=== PATIENT | female | born 1945 | race Caucasian/White ===

== ENCOUNTER 2016-06-14 16:58 | Emergency (ER) | payer OTHER ==
--- NOTE | 2016-06-14 18:59 | DIAGNOSTIC IMAGING REPORT ---
PROCEDURE: CT SINUS/FACIAL BONES W/O CONT CLINICAL INDICATION: Fall injury, initial encounter TECHNIQUE: Noncontrast axial images with coronal reformations. COMPARISON: None. FINDINGS: Right frontal scalp contusion. There is no underlying fracture. The mandible, pterygoid plates, zygomatic arches and nasal bone are intact. Paranasal sinuses are clear. Mild left nasal septal deviation. IMPRESSION: 1. Right frontal scalp contusion. No fracture . All CT scans at this facility use dose modulation, iterative reconstruction, and/or weight-based dosing when appropriate to reduce radiation dose to as low as reasonably achievable.
--- NOTE | 2016-06-14 19:03 | DIAGNOSTIC IMAGING REPORT ---
PROCEDURE: CT HEAD WITHOUT CONTRAST INDICATION: Fall injury, initial encounter TECHNIQUE: Noncontrast axial images with sagittal and coronal reformations. COMPARISON: Head CT 07/22/2014 FINDINGS: Mild cortical atrophy, chronic ischemic changes and enlargement of the ventricular system. No acute intracranial abnormality. Right frontal and periorbital soft tissue swelling. The globes are unremarkable. Paranasal sinuses are clear. Mastoids are clear. IMPRESSION: 1. Right frontal and right periorbital soft tissue contusion 2. Mild atrophy and white matter chronic ischemic changes 3. Findings discussed with Dr. Everett at 07:02 p.m.[facility] Standard Time
--- NOTE | 2016-06-14 19:03 | DIAGNOSTIC IMAGING REPORT ---
PROCEDURE: CT HEAD WITHOUT CONTRAST INDICATION: Fall injury, initial encounter TECHNIQUE: Noncontrast axial images with sagittal and coronal reformations. COMPARISON: Head CT 07/22/2014 FINDINGS: Mild cortical atrophy, chronic ischemic changes and enlargement of the ventricular system. No acute intracranial abnormality. Right frontal and periorbital soft tissue swelling. The globes are unremarkable. Paranasal sinuses are clear. Mastoids are clear. IMPRESSION: 1. Right frontal and right periorbital soft tissue contusion 2. Mild atrophy and white matter chronic ischemic changes 3. Findings discussed with Dr. Everett at 07:02 p.m.[facility] Standard Time
--- NOTE | 2016-06-14 19:09 | DIAGNOSTIC IMAGING REPORT ---
PROCEDURE: CT CERVICAL SPINE W/O CONTRAST CLINICAL INDICATION: Fall injury, initial encounter TECHNIQUE: Noncontrast axial images with sagittal and coronal reformations. COMPARISON: None FINDINGS: 2 mm C4-5 anterolisthesis. There is no fracture. Moderately severe degenerative changes. Severe right C3-4, C4-5 and C5 sign foraminal stenosis. Mild C3-4 for spinal stenosis. Paraspinal soft tissues are unremarkable. IMPRESSION: 1. No acute change 2. Moderately severe degenerative changes with foraminal and spinal stenosis 3. Results discussed with Dr. Everett All CT scans at this facility use dose modulation, iterative reconstruction, and/or weight-based dosing when appropriate to reduce radiation dose to as low as reasonably achievable.
--- NOTE | 2016-06-14 19:09 | DIAGNOSTIC IMAGING REPORT ---
PROCEDURE: XR CHEST 1 VIEW INDICATION: SYNCOPE TECHNIQUE: Portable AP view 06:56 p.m. COMPARISON: Chest 10/17/2014 FINDINGS: Lungs are clear. Heart and mediastinum are normal. Thorax is normal. IMPRESSION: 1. Negative chest.
--- NOTE | 2016-06-14 19:12 | DIAGNOSTIC IMAGING REPORT ---
PROCEDURE: XR HAND 3 OR 4 VIEWS - LEFT INDICATION: TRAUMA/INJURY TECHNIQUE: Four views. COMPARISON: None. FINDINGS: Fracture left fifth metacarpal with overriding of the fragments. 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 IMPRESSION: 1. Fracture of the fifth metacarpal on the left with overriding of the fragments.
--- NOTE | 2016-06-14 21:24 | ED ORDER SUMMARY ---
..... Patient: GURU MEEK OrderSheet [facility] VisitID: [id number] [address] [place] [address] 70y, F Registration Date/Time: 06/14/2016 ORDER SHEET Weight: 81.6 kg (stated) Allergies: Actos, Avantia, Lobster GENERAL ORDERS: Radiotelegraphist (Continuous) (18:14 06/14/2016 Andrei ROSALES) (Ack 18:27 LNations ER Tech1) (19:37 JQuivey R.N.) Chest 1V Urgent (18:15 06/14/2016 Andrei ROSALES) (Ack 18:27 LNations ER Tech1) (19:06 MCampbell) CT Head wo Cont Urgent (18:15 06/14/2016 Andrei ROSALES) (Ack 18:28 LNations ER Tech1) (19:06 MCampbell) Hand 3 or 4V Left Urgent (18:16 06/14/2016 Andrei ROSALES) (Ack 18:28 LNations ER Tech1) (19:06 MCampbell) Cardiac Panel Stat (18:16 06/14/2016 Andrei ROSALES) (Ack 18:28 LNations ER Tech1) (19:44 NHouse ER Tech1) UA-Culture if indicated Urgent (18:16 06/14/2016 Andrei ROSALES) (Ack 18:28 LNations ER Tech1) (20:14 JQuivey R.N.) PT with INR Urgent (18:16 06/14/2016 Andrei ROSALES) (Ack 18:28 LNations ER Tech1) (19:44 NHouse ER Tech1) PTT Urgent (18:16 06/14/2016 Andrei ROSALES) (Ack 18:28 LNations ER Tech1) (19:44 NHouse ER Tech1) BNP Urgent (18:16 06/14/2016 Andrei ROSALES) (Ack 18:28 LNations ER Tech1) (19:44 NHouse ER Tech1) Urine Drug Screen Urgent (18:16 06/14/2016 Andrei ROSALES) (Ack 18:28 LNations ER Tech1) (20:13 JQuivey R.N.) TSH Urgent (18:16 06/14/2016 Andrei ROSALES) (Ack 18:28 LNations ER Tech1) (19:44 NHouse ER Tech1) Pulse oximeter (18:16 06/14/2016 Andrei ROSALES) (Ack 18:27 LNations ER Tech1) (19:37 JQuivey R.N.) EKG - ER Stat (18:16 06/14/2016 Andrei ROSALES) (18:27 LNations ER Tech1) CT Cervical Spine wo Cont Urgent (18:16 06/14/2016 Andrei ROSALES) (Ack 18:29 LNations ER Tech1) (19:06 MCampbell) CT Sinus/Facial Bones wo Cont Urgent (18:24 06/14/2016 Andrei ROSALES) (Ack 18:29 LNations ER Tech1) (19:06 MCampbell) Splint (UE) (Left) (Ulnar Gutter) (19:28 06/14/2016 Andrei ROSALES) (Ack 19:45 JQuivey R.N.) (20:16 LMuller) MEDICATION ORDERS: IV FLUIDS: Demerol IV 12.5 mg (NOW) (18:16 06/14/2016 Andrei ROSALES) (Ack 18:18 SReitz R.N.) (Cancelled: Patient [id number] JQuivey R.N.) IV Saline Lock (18:16 06/14/2016 Andrei ROSALES) (Ack 18:18 Alpesh R.N.) (Cancelled: Patient [id number] JQuivey R.N.) ORDER SHEET NOTES: [Electronically signed by Susie Cantu R.N. (21:32 06/14/2016)] [Electronically signed by Bebo Everett MD (22:26 06/15/2016)] [Electronically locked/signed by Susie Cantu R.N. (21:32 06/14/2016)]
--- NOTE | 2016-06-14 21:24 | ED NURSING NOTES ---
Clinical Report - Nurses [facility] [address] [place] [address] 06/14/2016 17:01 Patient: GURU MEEK TRIAGE Triage time 17:16. Acuity: LEVEL 3. Chief Complaint: FALL while walking (got up out of bed, states she took about 2 steps and legs just gave out and she fell onto the carpeted floor striking her face and both hands). Alert. No acute distress. GILBERT COMA SCORE: Jenkins Coma Scale: 15- eyes open spontaneously (4); best verbal response- oriented x 4 (5); best motor response- obeys commands (6). --17:35 Christelle Kelsey R.N. 17:16 06/14/16. BP: 121/55. HR: 110. RR: 18. O2 saturation: 95%. Temp: 98.3 F (oral). Pain level now: 12/13. --17:35 Christelle Kelsey R.N. Weight: 81.6 kg stated. Height/Length: 66 inches Per Patient. BMI: 29. --17:23 Christelle Kelsey R.N. Medications ALPRAZolam Oral 0.25 mg, as needed. ASA Oral 81 mg, M,W,F,Sat. Citalopram Hydrobromide Oral (Tablet 20 mg) 1/2 tablet, bid. --17:39 Christelle Kelsey R.N. Diltiazem HCl Oral (Tablet 120 mg), daily. --17:39 Christelle Kelsey R.N. Furosemide Oral (Tablet 80 mg), 2x a day. --17:41 Christelle Kelsey R.N. HumaLOG Subcutaneous, as needed (sliding scale). --17:42 Christelle Kelsey R.N. Hydrocodone-Acetaminophen Oral, at bedtime. --17:43 Christelle Kelsey R.N. Levothyroxine Sodium Oral 100 mcg, daily. Magnesium Oral 400 mg, daily. OxyCONTIN Oral 40 mg, 2x a day. Promethazine HCl Oral 25 mg, as needed. Simvastatin Oral 20 mg, daily. Vitamin D Oral (Capsule 2000 unit), bid. --17:44 Christelle Kelsey R.N. Fish Oil Oral 1200 mg, bid. --17:46 Christelle Kelsey R.N. Lantus Subcutaneous 70 units, every AM. --17:46 Christelle Kelsey R.N. Renvela Oral (Tablet 800 mg), per meal. --17:47 Christelle Kelsey R.N. Stool Softener Oral. --17:48 Christelle Kelsey R.N. Vit b complex 2 tabs, daily. --17:48 Christelle Kelsey R.N. Vitamins/Minerals Oral. --17:49 Christelle Kelsye R.N. Allergies Actos. Avantia. Lobster. --17:49 Christelle Kelsey R.N. History Arrived by private vehicle. Historian: patient and family. Accompanied by family. Primary physician (Dimple). This occurred today (at about 0245). SOCIAL HX: Smoker- current status unknown (no). No alcohol use or drug use. FALL RISK ASSESSMENT: Fall risk assessment completed. Risk factors identified include patient age greater than 65 years, history of fall and impairment of mobility and cognition. Fall interventions initiated. Patient placed in wheelchair. FUNCTIONAL ASSESSMENT: Functional assessment performed: requires assistance with the activities of daily living; uses wheelchair and walker- this mobility impairment is an ongoing problem; [id number]. LEARNING NEEDS ASSESSMENT: (teaching with spouse). --17:35 Christelle Kelsey R.N. PROBLEMS: Fistula. Tremor. Hemodialysis. Renal Failure. Hypercholesterolemia. Immunizations. LNMP - Last Normal Menstrual Period. Chronic Back Pain. Chronic edema . Hypertension. Diabetes Mellitus. Anxiety Reaction. --17:23 Christelle Kelsey R.N. ADDITIONAL SURGERIES: Bowel resection . Breast Biopsy. Colonoscopy. Right knee surgery . Right leg fracture repair . Tonsillectomy. --17:23 Christelle Kelsey R.N. Assessment GENERAL / NEURO / PSYCH: The patient is awake and alert, is oriented and cooperative and appears uncomfortable. She has good eye contact. ( swelling, bruising to right eye, both hands). RESPIRATORY: Respirations not labored. SKIN: Skin is warm and dry. --17:35 Christelle Kelsey R.N. Interventions ID band on patient. To treatment room. --17:35 Christelle Kelsey R.N. NURSING PROGRESS NOTES ( first contact with pt. Pt appears comfortable at this time.). --17:55 Ness Mosquera R.N. 17:51 06/14/16. BP: 126/41. HR: 76. RR: 16. O2 saturation: 100%. --17:55 Ness Mosquera R.N. Point of care testing: performed by nurse. Glucose: 54. Result shown to the ED physician. --18:06 Ness Mosquera R.N. ( x2 orange juices given to pt. provider aware of B.). --18:09 Ness Mosquera R.N. ( Pt. requesting x2 acetaminophen. Provider notified:no new orders at this time.). --18:09 Ness Mosquera R.N. 18:25. --18:31 Ness Mosquera R.N. Patient transported to CT by stretcher with tech. (18:51). --18:52 Ness Mosquera R.N. ( correction to prior: pt transported to CT at 1825). --18:53 Ness Mosquera R.N. Patient returned from CT by stretcher with tech. (18:50). --18:54 Ness Mosquera R.N. Patient transported to radiology by stretcher with tech. (18:51). --18:54 Ness Mosquera R.N. ( Attempt to access IV line. Pt. refuse IV and requesting PO medications for pain. Educated the need for lab work and IV access. Pt. requesting to talk with .). --19:16 Ness Mosquera R.N. EKG time: (1909). EKG was ordered, performed by a tech and shown to the ED physician. --19:18 Lili Mcnamara, MYRON Tech1 19:39 lock technician with patient for blood draw. --19:40 Caden Reyes R.N. 19:52 Bedside commode placed in room, assisting pt collect urine specimin. --19:53 Caden Reyes R.N. 20:06. Patient ID band checked for patient name and birthdate: patient confirmed. Clean catch urine collected with return of yellow-colored clear urine; sample sent to lab for urinalysis. Specimen labeled in the presence of the patient. --20:13 Caden Reyes R.N. Ulna gutter upper extremity splint applied to left wrist and hand by tech. Distal pulses intact, sensation intact and motor within normal limits. --20:17 Minna Beaulieu ( Pt was given a sandwich and jello and a cup of water). --20:17 Minna Beaulieu ( blood glucose: 81 after food/ done per nursing protocol). --21:01 Minna Beaulieu. DISPOSITION / DISCHARGE Discharge instructions provided and reviewed with the patient and spouse. Reviewed medication(s) side effects, precautions, dosing and course information. Prescription(s) given to the patient. Patient and spouse verbalized understanding. The patient was discharged by the physician. She was discharged home and accompanied by spouse. She left the Emergency Department in a wheelchair and via private vehicle. Spouse driving. --21:32 Susie Cantu R.N. 21:31 06/14/16. BP: deferred. HR: deferred. RR: deferred. O2 saturation: deferred. Temp: deferred. Pain level now deferred. --21:32 Susie Cantu R.N. Locked/Released at 06/14/2016 21:32 by Susie Cantu R.N.
--- NOTE | 2016-06-14 21:24 | ED ORDER SUMMARY ---
..... Patient: GURU MEEK OrderSheet [facility] VisitID: [id number] [address] [place] [address] 70y, F Registration Date/Time: 06/14/2016 ORDER SHEET Weight: 81.6 kg (stated) Allergies: Actos, Avantia, Lobster GENERAL ORDERS: Time Motion Analyst (Continuous) (18:14 06/14/2016 Andrei ROSALES) (Ack 18:27 LNations ER Tech1) (19:37 JQuivey R.N.) Chest 1V Urgent (18:15 06/14/2016 Andrei ROSALES) (Ack 18:27 LNations ER Tech1) (19:06 MCampbell) CT Head wo Cont Urgent (18:15 06/14/2016 Andrei ROSALES) (Ack 18:28 LNations ER Tech1) (19:06 MCampbell) Hand 3 or 4V Left Urgent (18:16 06/14/2016 Andrei ROSALES) (Ack 18:28 LNations ER Tech1) (19:06 MCampbell) Cardiac Panel Stat (18:16 06/14/2016 Andrei ROSALES) (Ack 18:28 LNations ER Tech1) (19:44 NHouse ER Tech1) UA-Culture if indicated Urgent (18:16 06/14/2016 Andrei ROSALES) (Ack 18:28 LNations ER Tech1) (20:14 JQuivey R.N.) PT with INR Urgent (18:16 06/14/2016 Andrei ROSALES) (Ack 18:28 LNations ER Tech1) (19:44 NHouse ER Tech1) PTT Urgent (18:16 06/14/2016 Andrei ROSALES) (Ack 18:28 LNations ER Tech1) (19:44 NHouse ER Tech1) BNP Urgent (18:16 06/14/2016 Andrei ROSALES) (Ack 18:28 LNations ER Tech1) (19:44 NHouse ER Tech1) Urine Drug Screen Urgent (18:16 06/14/2016 Andrei ROSALES) (Ack 18:28 LNations ER Tech1) (20:13 JQuivey R.N.) TSH Urgent (18:16 06/14/2016 Andrei ROSALES) (Ack 18:28 LNations ER Tech1) (19:44 NHouse ER Tech1) Pulse oximeter (18:16 06/14/2016 Andrei ROSALES) (Ack 18:27 LNations ER Tech1) (19:37 JQuivey R.N.) EKG - ER Stat (18:16 06/14/2016 Andrei ROSALES) (18:27 LNations ER Tech1) CT Cervical Spine wo Cont Urgent (18:16 06/14/2016 Andrei ROSALES) (Ack 18:29 LNations ER Tech1) (19:06 MCampbell) CT Sinus/Facial Bones wo Cont Urgent (18:24 06/14/2016 Andrei ROSALES) (Ack 18:29 LNations ER Tech1) (19:06 MCampbell) Splint (UE) (Left) (Ulnar Gutter) (19:28 06/14/2016 Andrei ROSALES) (Ack 19:45 JQuivey R.N.) (20:16 LMuller) MEDICATION ORDERS: IV FLUIDS: Demerol IV 12.5 mg (NOW) (18:16 06/14/2016 Andrei ROSALES) (Ack 18:18 SReitz R.N.) (Cancelled: Patient [id number] JQuivey R.N.) IV Saline Lock (18:16 06/14/2016 Andrei ROSALES) (Ack 18:18 Alpesh R.N.) (Cancelled: Patient [id number] JQuivey R.N.) ORDER SHEET NOTES: [Electronically signed by Susie Cantu R.N. (21:32 06/14/2016)] [Electronically signed by Bebo Everett MD (22:26 06/15/2016)] [Electronically locked/signed by Susie Cantu R.N. (21:32 06/14/2016)]
--- NOTE | 2016-06-14 21:24 | ED CLINICAL REPORT ---
Clinical Report - Physicians/Mid Levels [facility] [address] [place] [address] 06/14/2016 17:01 Patient: GURU MEEK Time Seen: 18:02 Jun 14 2016. Arrived- By private vehicle. Historian- patient. CPT: ER phys charges level 5 plus (#[id number]). Application short arm splint (#[id number]). HISTORY OF PRESENT ILLNESS Chief Complaint: INJURY TO FACE, RIGHT UPPER EXTREMITY (HAND) and LEFT UPPER EXTREMITY (HAND). Location of injuries- face, right hand and left hand. The injury occurred today. Fell out of bed while standing and landed on the ground (While getting up to go to the BR. She does not remember anything else other than waking up on the floor.). Occurred at home. The patient complains of moderate pain. The patient sustained a blow to the head. No neck pain. The patient had loss of consciousness. (Uncertain if passed out.). Not dazed. REVIEW OF SYSTEMS No numbness, dizziness, loss of vision, hearing loss or chest pain. No weakness, headache, nausea, abdominal pain or laceration. No vomiting. She has no pain on weight bearing. All systems otherwise negative, except as recorded above. PAST HISTORY See nurses notes. Fistula. Tremor. Hemodialysis. Renal Failure. Hypercholesterolemia. Immunizations. LNMP - Last Normal Menstrual Period. Chronic Back Pain. Chronic edema . Hypertension. Diabetes Mellitus. Anxiety Reaction. --17:23 Christelle Kelsey RMartha. ADDITIONAL SURGERIES: Bowel resection . Breast Biopsy. Colonoscopy. Right knee surgery . Right leg fracture repair . Tonsillectomy. Medications: Vitamins/Minerals Oral. Vit b complex 2 tabs, daily. Stool Softener Oral. Renvela Oral (Tablet 800 mg), per meal. Lantus Subcutaneous 70 units, every AM. Fish Oil Oral 1200 mg, bid. Levothyroxine Sodium Oral 100 mcg, daily. Magnesium Oral 400 mg, daily. OxyCONTIN Oral 40 mg, 2x a day. Promethazine HCl Oral 25 mg, as needed. Simvastatin Oral 20 mg, daily. Vitamin D Oral (Capsule 2000 unit), bid. Hydrocodone-Acetaminophen Oral, at bedtime. HumaLOG Subcutaneous, as needed (sliding scale). Furosemide Oral (Tablet 80 mg), 2x a day. Diltiazem HCl Oral (Tablet 120 mg), daily. ALPRAZolam Oral 0.25 mg, as needed. ASA Oral 81 mg, M,W,F,Sat. Citalopram Hydrobromide Oral (Tablet 20 mg) 1/2 tablet, bid. Allergies: Actos. Avantia. Lobster. SOCIAL HISTORY Never smoker. No alcohol use or drug use. ADDITIONAL NOTES The nursing notes have been reviewed. PHYSICAL EXAM Vital Signs: 06/14/2016 17:16 BP: 121/55. HR: 110. RR: 18. O2 saturation: 95%. Temp: 98.3 F. Pain level now: 12/13. Appearance: Alert. Patient in mild distress. Eyes: Pupils equal, round and reactive to light. EOM intact. Right periorbital area: moderate tenderness and swelling and medium sized ecchymosis of the lateral aspect and supraorbital and infraorbital area of the periorbital area. No laceration, abrasion or deformity. No entrapment of extraocular muscles or gaze palsy. ENT: No dental injury. Pharynx normal. Neck: Painless ROM. Mild vertebral tenderness of the upper cervical spine. CVS: Heart sounds normal. Pulses normal. Respiratory: Breath sounds normal. Chest nontender. Abdomen: No visible injury. Soft and nontender. Bowel sounds normal. Back: No tenderness. ROM normal. Skin: Skin intact. Skin warm. Normal skin color. Extremities: Right hand: mild tenderness and medium sized ecchymosis localized to the dorsal aspect of the hand. Neurovascular intact distally. No swelling. Left hand: moderate tenderness, mild swelling and medium sized ecchymosis localized to the distal and ulnar aspect of the hand. Neurovascular intact distally. Neuro: Oriented X 3. No motor deficit. No sensory deficit. Reflexes normal. LABS, X-RAYS, AND EKG EKG: Normal sinus rhythm. Normal P waves. Normal QRS complex. Nondiagnostic Q waves in lead III and aVF (low voltage). Non-specific ST segment / T wave abnormalities. Prior EKG unavailable. The study has been interpreted contemporaneously. The study has been independently viewed by me. The EKG appears to be a good tracing. Artifact present. X-Rays: Chest X-ray negative. Lt Hand X-ray: Fracture involving the base of the left fifth metacarpal. Views: AP, lateral and oblique. Technique: good. The X-rays were independently viewed by me and interpreted by the radiologist. CT C-Spine: No acute disease. CT Head: Normal study. No acute changes. No hemorrhage and no intracranial mass. (Soft tissue hematoma around the right orbit.). The study was independently viewed by me, interpreted by the radiologist and discussed with the radiologist. Note - Tests: (CT Facial bones : No fractures.). PROGRESS AND PROCEDURES Course of Care: Pt refuses heplock for pain meds. reports that she did not have syncope because he was there when she fell and she was always responsive. Pt not sure why she fell. Basic lab and evaluation is negative. Discussed need for follow up. Patient/family counseled. Disposition: Discharged. Condition: stable. CLINICAL IMPRESSION Left 5th metacarpal fracture. Multiple contusions with soft tissue hematoma and abrasion to the nose, right periorbital area, right hand and left hand. Fall on same level by tripping. UTI. INSTRUCTIONS Apply ice for 15-20 minutes three times a day for one days. Wear simple sling until released. Wear fiberglass splint until released. Warnings: HEAD INJURY PRECAUTIONS: An observer must check on the patient every 4 hours for the next 24 hours to confirm that the patient responds as expected, is not confused, has no new weakness or numbness, and has no other problems. GENERAL WARNINGS: Return or contact your physician immediately if your condition worsens or changes unexpectedly, if not improving as expected, or if other problems arise. Prescription Medications: Hydrocodone/APAP 5mg/325mg: take 1 to 2 orally every 6 hours as needed for pain. Dispense fifteen (15). No refills. Amoxicillin 500 mg tablets: Take 1 orally every 8 hours for 7 days. Dispense twenty-one (21). No refills. Follow-up: Follow up with your doctor in one week. Call for an appointment. Follow up with an orthopedic surgeon in two days. Call for an appointment. Understanding of the discharge instructions verbalized by patient. Discharge instructions reviewed with and understanding was verbalized by spouse. Follow-up with: Bud Kingsley M.D., Orthopedic Surgeon, , [facility], [address] [facility] [id number] Follow up in two days. Call for the next available appointment. (Electronically signed by Bebo Everett MD 06/15/2016 22:26)
--- NOTE | 2016-06-14 21:24 | ED CLINICAL REPORT ---
Clinical Report - Physicians/Mid Levels [facility] [address] [place] [address] 06/14/2016 17:01 Patient: GURU MEEK Time Seen: 18:02 Jun 14 2016. Arrived- By private vehicle. Historian- patient. CPT: ER phys charges level 5 plus (#[id number]). Application short arm splint (#[id number]). HISTORY OF PRESENT ILLNESS Chief Complaint: INJURY TO FACE, RIGHT UPPER EXTREMITY (HAND) and LEFT UPPER EXTREMITY (HAND). Location of injuries- face, right hand and left hand. The injury occurred today. Fell out of bed while standing and landed on the ground (While getting up to go to the BR. She does not remember anything else other than waking up on the floor.). Occurred at home. The patient complains of moderate pain. The patient sustained a blow to the head. No neck pain. The patient had loss of consciousness. (Uncertain if passed out.). Not dazed. REVIEW OF SYSTEMS No numbness, dizziness, loss of vision, hearing loss or chest pain. No weakness, headache, nausea, abdominal pain or laceration. No vomiting. She has no pain on weight bearing. All systems otherwise negative, except as recorded above. PAST HISTORY See nurses notes. Fistula. Tremor. Hemodialysis. Renal Failure. Hypercholesterolemia. Immunizations. LNMP - Last Normal Menstrual Period. Chronic Back Pain. Chronic edema . Hypertension. Diabetes Mellitus. Anxiety Reaction. --17:23 Christelle Kelsey RMartha. ADDITIONAL SURGERIES: Bowel resection . Breast Biopsy. Colonoscopy. Right knee surgery . Right leg fracture repair . Tonsillectomy. Medications: Vitamins/Minerals Oral. Vit b complex 2 tabs, daily. Stool Softener Oral. Renvela Oral (Tablet 800 mg), per meal. Lantus Subcutaneous 70 units, every AM. Fish Oil Oral 1200 mg, bid. Levothyroxine Sodium Oral 100 mcg, daily. Magnesium Oral 400 mg, daily. OxyCONTIN Oral 40 mg, 2x a day. Promethazine HCl Oral 25 mg, as needed. Simvastatin Oral 20 mg, daily. Vitamin D Oral (Capsule 2000 unit), bid. Hydrocodone-Acetaminophen Oral, at bedtime. HumaLOG Subcutaneous, as needed (sliding scale). Furosemide Oral (Tablet 80 mg), 2x a day. Diltiazem HCl Oral (Tablet 120 mg), daily. ALPRAZolam Oral 0.25 mg, as needed. ASA Oral 81 mg, M,W,F,Sat. Citalopram Hydrobromide Oral (Tablet 20 mg) 1/2 tablet, bid. Allergies: Actos. Avantia. Lobster. SOCIAL HISTORY Never smoker. No alcohol use or drug use. ADDITIONAL NOTES The nursing notes have been reviewed. PHYSICAL EXAM Vital Signs: 06/14/2016 17:16 BP: 121/55. HR: 110. RR: 18. O2 saturation: 95%. Temp: 98.3 F. Pain level now: 12/13. Appearance: Alert. Patient in mild distress. Eyes: Pupils equal, round and reactive to light. EOM intact. Right periorbital area: moderate tenderness and swelling and medium sized ecchymosis of the lateral aspect and supraorbital and infraorbital area of the periorbital area. No laceration, abrasion or deformity. No entrapment of extraocular muscles or gaze palsy. ENT: No dental injury. Pharynx normal. Neck: Painless ROM. Mild vertebral tenderness of the upper cervical spine. CVS: Heart sounds normal. Pulses normal. Respiratory: Breath sounds normal. Chest nontender. Abdomen: No visible injury. Soft and nontender. Bowel sounds normal. Back: No tenderness. ROM normal. Skin: Skin intact. Skin warm. Normal skin color. Extremities: Right hand: mild tenderness and medium sized ecchymosis localized to the dorsal aspect of the hand. Neurovascular intact distally. No swelling. Left hand: moderate tenderness, mild swelling and medium sized ecchymosis localized to the distal and ulnar aspect of the hand. Neurovascular intact distally. Neuro: Oriented X 3. No motor deficit. No sensory deficit. Reflexes normal. LABS, X-RAYS, AND EKG EKG: Normal sinus rhythm. Normal P waves. Normal QRS complex. Nondiagnostic Q waves in lead III and aVF (low voltage). Non-specific ST segment / T wave abnormalities. Prior EKG unavailable. The study has been interpreted contemporaneously. The study has been independently viewed by me. The EKG appears to be a good tracing. Artifact present. X-Rays: Chest X-ray negative. Lt Hand X-ray: Fracture involving the base of the left fifth metacarpal. Views: AP, lateral and oblique. Technique: good. The X-rays were independently viewed by me and interpreted by the radiologist. CT C-Spine: No acute disease. CT Head: Normal study. No acute changes. No hemorrhage and no intracranial mass. (Soft tissue hematoma around the right orbit.). The study was independently viewed by me, interpreted by the radiologist and discussed with the radiologist. Note - Tests: (CT Facial bones : No fractures.). PROGRESS AND PROCEDURES Course of Care: Pt refuses heplock for pain meds. reports that she did not have syncope because he was there when she fell and she was always responsive. Pt not sure why she fell. Basic lab and evaluation is negative. Discussed need for follow up. Patient/family counseled. Disposition: Discharged. Condition: stable. CLINICAL IMPRESSION Left 5th metacarpal fracture. Multiple contusions with soft tissue hematoma and abrasion to the nose, right periorbital area, right hand and left hand. Fall on same level by tripping. UTI. INSTRUCTIONS Apply ice for 15-20 minutes three times a day for one days. Wear simple sling until released. Wear fiberglass splint until released. Warnings: HEAD INJURY PRECAUTIONS: An observer must check on the patient every 4 hours for the next 24 hours to confirm that the patient responds as expected, is not confused, has no new weakness or numbness, and has no other problems. GENERAL WARNINGS: Return or contact your physician immediately if your condition worsens or changes unexpectedly, if not improving as expected, or if other problems arise. Prescription Medications: Hydrocodone/APAP 5mg/325mg: take 1 to 2 orally every 6 hours as needed for pain. Dispense fifteen (15). No refills. Amoxicillin 500 mg tablets: Take 1 orally every 8 hours for 7 days. Dispense twenty-one (21). No refills. Follow-up: Follow up with your doctor in one week. Call for an appointment. Follow up with an orthopedic surgeon in two days. Call for an appointment. Understanding of the discharge instructions verbalized by patient. Discharge instructions reviewed with and understanding was verbalized by spouse. Follow-up with: Bud Kingsley M.D., Orthopedic Surgeon, , [facility], [address] [facility] [id number] Follow up in two days. Call for the next available appointment. (Electronically signed by Bebo Everett MD 06/15/2016 22:26)
--- NOTE | 2016-06-15 22:27 | ED MAR SUMMARY ---
..... Medication Administration Record [facility] [address] [place], [place] [id number] Patient: GURU MEEK Visit ID: [id number] 70y, F Weight: 81.6 kg Height/Length: 66 in BMI: 29 ALLERGIES: ActosLj Lobster
--- NOTE | 2016-06-15 22:27 | ED MED RECONCILIATION SUMMARY ---
Patient: GURU MEEK Medication Reconciliation Report [facility] VisitID: [id number] [address] [place] [address] 70y, F Registration Date/Time: 06/14/2016 Weight: 81.6 kg Height/Length: 66 in. BMI: 29.0 ALLERGIES: Actos, Avantia, Lobster The patient's Home Medications are listed below: THE FOLLOWING MEDICATIONS NEED TO BE RECONCILED: ALPRAZolam Oral 0.25 mg ASA Oral 81 mg, M,W,F,Sat Citalopram Hydrobromide Oral (20 mg) 1/2 tablet, bid Diltiazem HCl Oral (120 mg), daily Fish Oil Oral 1200 mg, bid Furosemide Oral (80 mg), 2x a day HumaLOG Subcutaneous, sliding scale Hydrocodone-Acetaminophen Oral, at bedtime Lantus Subcutaneous 70 units, every AM Levothyroxine Sodium Oral 100 mcg, daily Magnesium Oral 400 mg, daily OxyCONTIN Oral 40 mg, 2x a day Promethazine HCl Oral 25 mg Renvela Oral (800 mg), per meal Simvastatin Oral 20 mg, daily Stool Softener Oral Vit b complex 2 tabs, daily Vitamin D Oral (2000 unit), bid Vitamins/Minerals Oral The source(s) of the original Home Medication information: Not obtained. The following Medications were given to the patient in the Emergency Department: None. The following Medications were prescribed to the patient: Hydrocodone/APAP 5mg/325mg: take 1 to 2 orally every 6 hours as needed for pain. Dispense fifteen (15). No refills. -- Bebo Everett MD Amoxicillin 500 mg tablets: Take 1 orally every 8 hours for 7 days. Dispense twenty-one (21). No refills. -- Bebo Everett MD
--- NOTE | 2016-06-15 22:27 | ED MED RECONCILIATION SUMMARY ---
Patient: GURU MEEK Medication Reconciliation Report [facility] VisitID: [id number] [address] [place] [address] 70y, F Registration Date/Time: 06/14/2016 Weight: 81.6 kg Height/Length: 66 in. BMI: 29.0 ALLERGIES: Actos, Avantia, Lobster The patient's Home Medications are listed below: THE FOLLOWING MEDICATIONS NEED TO BE RECONCILED: ALPRAZolam Oral 0.25 mg ASA Oral 81 mg, M,W,F,Sat Citalopram Hydrobromide Oral (20 mg) 1/2 tablet, bid Diltiazem HCl Oral (120 mg), daily Fish Oil Oral 1200 mg, bid Furosemide Oral (80 mg), 2x a day HumaLOG Subcutaneous, sliding scale Hydrocodone-Acetaminophen Oral, at bedtime Lantus Subcutaneous 70 units, every AM Levothyroxine Sodium Oral 100 mcg, daily Magnesium Oral 400 mg, daily OxyCONTIN Oral 40 mg, 2x a day Promethazine HCl Oral 25 mg Renvela Oral (800 mg), per meal Simvastatin Oral 20 mg, daily Stool Softener Oral Vit b complex 2 tabs, daily Vitamin D Oral (2000 unit), bid Vitamins/Minerals Oral The source(s) of the original Home Medication information: Not obtained. The following Medications were given to the patient in the Emergency Department: None. The following Medications were prescribed to the patient: Hydrocodone/APAP 5mg/325mg: take 1 to 2 orally every 6 hours as needed for pain. Dispense fifteen (15). No refills. -- Bebo Everett MD Amoxicillin 500 mg tablets: Take 1 orally every 8 hours for 7 days. Dispense twenty-one (21). No refills. -- Bebo Everett MD
--- NOTE | 2016-06-15 22:27 | ED DISCHARGE INSTRUCTIONS ---
Patient: GURU MEEK General Instructions [facility] VisitID: [id number] [address] [place] [address] 70y, F Registration Date/Time: 06/14/2016 Left 5th metacarpal fracture. Multiple contusions with soft tissue hematoma and abrasion to the nose, right periorbital area, right hand and left hand. Fall on same level by tripping. UTI. INSTRUCTIONS Apply ice for 15-20 minutes three times a day for one days. Wear simple sling until released. Wear fiberglass splint until released. Warnings: HEAD INJURY PRECAUTIONS: An observer must check on the patient every 4 hours for the next 24 hours to confirm that the patient responds as expected, is not confused, has no new weakness or numbness, and has no other problems. GENERAL WARNINGS: Return or contact your physician immediately if your condition worsens or changes unexpectedly, if not improving as expected, or if other problems arise. Prescription Medications: Hydrocodone/APAP 5mg/325mg: take 1 to 2 orally every 6 hours as needed for pain. Dispense fifteen (15). No refills. Amoxicillin 500 mg tablets: Take 1 orally every 8 hours for 7 days. Dispense twenty-one (21). No refills. Follow-up: Follow up with your doctor in one week. Call for an appointment. Follow up with an orthopedic surgeon in two days. Call for an appointment. Understanding of the discharge instructions verbalized by patient. Discharge instructions reviewed with and understanding was verbalized by spouse. Follow-up with: Bud Kingsley M.D., Orthopedic Surgeon, , [facility], [address] [place], [id number] Follow up in two days. Call for the next available appointment. ADDITIONAL INFORMATION Mechanical Fall You have had a fall today. It appears that the cause is mechanical. That means that you slipped, tripped or lost your balance. If your fall had been due to fainting or a seizure, further tests would be required. Home Care: Rest today and resume your normal activities when you are feeling back to normal. If you were injured during the fall, follow the advice from your doctor regarding care of your injury. You may use acetaminophen (Tylenol) or ibuprofen (Motrin, Advil) to control pain, unless another pain medicine was prescribed. [NOTE: If you have chronic liver or kidney disease or ever had a stomach ulcer or GI bleeding, talk with your doctor before using these medicines.] Fall Prevention: Was there anything that caused your fall that can be fixed, removed, or replaced? Make your home safe by keeping walkways clear of objects you may trip over. Use non-slip pads under rugs. Do not walk in poorly lit areas. Do not stand on chairs or wobbly ladders. Use caution when reaching overhead or looking upward. This position can cause a loss of balance. Be sure your shoes fit properly, have non-slip bottoms and are in good condition. Be cautious when going up and down curbs, and walking on uneven sidewalks. If your balance is poor, consider using a cane or walker. Stay as active as you can. Balance, flexibility, strength, and endurance all come from exercise. They all play a role in preventing falls. Follow Up with your doctor or as advised by our staff. Get Prompt Medical Attention if any of the following occur: Repeated mechanical falls, or unexplained falls Dizziness, fainting or seizure Severe headache Chest pain or shortness of breath Palpitations (very rapid or very slow or irregular heartbeat) Blood in vomit, stools (black or red color) Weakness of an arm or leg or one side of the face Difficulty with speech or vision Contusion,Soft Tissue You have a CONTUSION, which is a bruise with swelling and some bleeding under the skin. There are no broken bones. This injury takes a few days to a few weeks to heal. Home Care: 1) Keep the injured part elevated to reduce pain and swelling. This is especially important during the first 48 hours. 2) Make an ice pack (ice cubes in a plastic bag, wrapped in a towel) and apply for 20 minutes every 1-2 hours the first day. Continue this 3-4 times a day until the pain and swelling goes away. 3) You may use acetaminophen (Tylenol) or ibuprofen (Motrin, Advil) to control pain, unless another pain medicine was prescribed. [ NOTE : If you have chronic liver or kidney disease or ever had a stomach ulcer or GI bleeding, talk with your doctor before using these medicines.] Follow Up with your doctor or this facility if you are not improving within the next THREE days. [NOTE: If X-rays were taken, they will be reviewed by a radiologist. You will be notified of any new findings that may affect your care.] Get Prompt Medical Attention if any of the following occur: -- Pain or swelling increases -- Injured arm or leg becomes cold, blue, numb or tingly -- Redness, warmth or drainage from the skin Fracture:Hand [Closed] You have a fracture (break) of a bone in your hand. This may be a small crack or chip in the bone or, it may be a major break with the broken parts pushed out of position. A hand fracture is treated with a splint or cast. It usually takes 4-6 weeks to heal. Severe injuries may require surgery. Home Care: 1) Keep your arm elevated to reduce pain and swelling. When sitting or lying down elevate your arm above the level of your heart. You can do this by placing your arm on a pillow that rests on your chest or on a pillow at your side. This is most important during the first 48 hours after injury. 2) Apply an ice pack (ice cubes in a plastic bag, wrapped in a towel) over the injured area for 20 minutes every 1-2 hours the first day. You can place the ice pack inside the sling and directly over the splint/cast. Continue with ice packs 3-4 times a day for the next two days, then as needed for the relief of pain and swelling. 3) Keep the cast/splint completely dry at all times. Bathe with your cast/splint out of the water, protected with a large plastic bag, rubber-banded at the top end. If a fiberglass cast/splint gets wet, you can dry it with a hair-dryer. 4) You may use acetaminophen (Tylenol) or ibuprofen (Motrin, Advil) to control pain, unless another pain medicine was prescribed. [ NOTE : If you have chronic liver or kidney disease or ever had a stomach ulcer or GI bleeding, talk with your doctor before using these medicines.] Follow Up with your doctor within one week, or as advised by our staff, to be sure the bone is healing properly. If you were given a splint, it may be changed to a cast at your follow-up visit. [NOTE: A radiologist will review any X-rays that were taken. We will notify you of any new findings that may affect your care.] Get Prompt Medical Attention if any of the following occur: -- The plaster cast or splint becomes wet or soft -- The fiberglass cast or splint remains wet for more than 24 hours -- Increased tightness or pain under the cast or splint -- Fingers become swollen, cold, blue, numb or tingly Sling A sling is designed to support your arm in a position of rest. It is used for injuries of the hand, forearm, upper arm, and shoulder. A shoulder that is immobilized too long can become stiff and lose range of motion. Follow up with your doctor as advised and do not use the sling longer than directed. Home Use: Leave the sling in place as long as directed by your doctor. Unless told otherwise, you may remove it when bathing, dressing, and when you go to sleep. The sling is adjustable. If it becomes loose, adjust it so that your forearm is horizontal (level with the ground). Your hand should be level with the elbow. Splint Care, Fiberglass The following will help you care for your splint: It will take up totwo hours for your fiber glass splint to fully harden; therefore, do notapply any pressure on it during that time or else it may break. To prevent swelling under the splint, for thefirst 48 hours: If the splint is on yourarm, keep it in a sling or raised to shoulder level when sitting or standing; rest it on your chest or on a pillow at your side when lying down. If the splint is on yourfoot, keep it propped up above the level of your waist when sitting or lying. Avoid crutch walking as much as possible during this time. Keep the splint/cast dry at all times. Bathe with your splint/cast well out of the water, protected with a large plastic bag, rubber-banded at the top end. If a fiberglass cast or splint gets wet, you can dry it with a hair-dryer. Follow-up care Follow up with your doctor or this facility as advised. When to seek medical care Get prompt medical attention if any of the following occur: Bad odor from the splint or wound-fluid stains the splint The splint cracks or remains wet over 24 hours Increasing tightness or pressure under the splint Fingers or toes become swollen, cold, blue, numb or tingly Increased pain under the splint Head Injury, No Wake-Up (Adult) You have had a head injury. It does not appear serious at this time. Symptoms of a more serious problem (concussion, bruising, or bleeding in the brain) may appear later. Therefore, watch for the WARNING SIGNS listed below. Home Care: Your healthcare provider will tell you whether its okay to drive. If so, you can drive yourself home. For the next day or so, be careful when driving or using heavy machinery until you are sure you have no delayed symptoms. During the next 24 hours someone must stay with you to check for the signs below. It is not necessary to stay awake or be awakened during the night. If you have swelling of the face or scalp, apply an ice pack (ice cubes in a plastic bag, wrapped in a towel) for 20 minutes. Do this every 1-2 hours until the swelling starts to go down. Do not use aspirin or ibuprofen (Motrin, Advil) after a head injury.You may use acetaminophen (Tylenol)to control pain, unless another pain medicine was prescribed. [NOTE: If you have chronic liver or kidney disease or ever had a stomach ulcer or GI bleeding, talk with your doctor before using these medicines.] For the next 24 hours: Do not take alcohol, sedatives or medicines that make you sleepy. Avoid strenuous activities. No lifting or straining. If you have had any symptoms of a concussion today (nausea, vomiting, dizziness, confusion, headache, memory loss or if you were knocked out), do not return to sports or any activity that could result in another head injury until all symptoms are gone and you have been cleared by your doctor. A second head injury before fully recovering from the first one can lead to serious brain injury. Follow Up with your doctor if symptoms are not improving after 24 hours, or as directed. [NOTE: A radiologist will review any X-rays or CT scans that were taken. We will notify you of any new findings that may affect your care.] Get Prompt Medical Attention if any of the followingWARNING SIGNS occur: Repeated vomiting Severe or worsening headache or dizziness Unusual drowsiness, or unable to awaken as usual Confusion or change in behavior or speech, memory loss, blurred vision Convulsion (seizure) Increasing scalp or face swelling Redness, warmth or pus from the swollen area Fluid drainage or bleeding from the nose or ears You have been given the following additional information: Fall, Mechanical Contusion, Soft Tissue Fracture, Hand (Closed) Sling Splint Care, Fiberglass HEAD INJURY, No Wake-Up (Adult) (Electronically signed by Bebo Everett MD 06/15/2016 22:26)
--- NOTE | 2016-06-15 22:27 | ED MAR SUMMARY ---
..... Medication Administration Record [facility] [address] [place], [place] [id number] Patient: GURU MEEK Visit ID: [id number] 70y, F Weight: 81.6 kg Height/Length: 66 in BMI: 29 ALLERGIES: ActosLj Lobster
== END 2016-06-14 21:30 | disposition home or self-care (01) ==
LOC: ED SRH 16:58
DX: S62.311A Displaced fracture of base of second metacarpal bone, left hand, initial encounter for closed fracture (principal); N39.0 Urinary tract infection, site not specified; S00.33XA Contusion of nose, initial encounter; S00.11XA Contusion of right eyelid and periocular area, initial encounter; S60.221A Contusion of right hand, initial encounter; S60.222A Contusion of left hand, initial encounter; W06.XXXA Fall from bed, initial encounter; Y93.89 Activity, other specified; Y92.9 Unspecified place or not applicable; Y99.9 Unspecified external cause status

== ENCOUNTER 2016-09-09 12:26 | Outpatient (CLI) | payer OTHER ==
--- NOTE | 2016-09-09 15:00 | DIAGNOSTIC IMAGING REPORT ---
PROCEDURE: XR SHOULDER 2 OR MORE VW-RIGHT INDICATION: RIGHT SHOULDER TENDINITIS TECHNIQUE: Three views of the right shoulder COMPARISON: None. FINDINGS: Decreased mineralization. No acute fractures. There is significant superior subluxation of the humeral head in the glenoid fossa with near complete loss of the acromiohumeral space. There are sclerotic, spurring, and subcortical cystic changes in the lateral acromion and humeral head as well as small spurs along the inferior humeral head and glenoid fossa. Tiny rounded calcifications are seen in the soft tissues by the proximal humeral diaphysis. IMPRESSION: 1. Significant superior humeral head subluxation indicative of a chronic, longstanding rotator cuff tear with secondary osteoarthritic changes. 2. There are tiny soft tissue calcifications which may be vascular, less likely joint debris.
--- NOTE | 2016-09-09 17:04 | DIAGNOSTIC IMAGING REPORT ---
REFERRING PHYSICIAN/PROVIDER: Thony Musa MD CONSULTING MERCHANDISE FLOW TEAM MEMBER: Franklyn Garza MD PROCEDURE: 2D echo, M-mode and complete color and flow Doppler interrogation TECHNICAL QUALITY: Good INDICATION: HEART MURMUR INTERPRETATIONS: CHAMBERS: LEFT ATRIUM: Left atrial enlargement. LEFT VENTRICLE: Concentric left ventricular hypertrophy. Normal left ventricular size and systolic function, EF 68%. No wall motion abnormalities. Diastology inadequately assessed. RIGHT ATRIUM: Right atrial enlargement. RIGHT VENTRICLE: Normal right ventricular size and systolic function. VALVES: All valves nonrheumatic unless otherwise indicated. AORTIC VALVE: Severe calcific aortic stenosis. Peak velocity 4.2 m/s, mean gradient 41 mmHg. No aortic regurgitation. MITRAL VALVE: Mitral annular calcification. Moderate mitral stenosis. Moderate mitral regurgitation. TRICUSPID VALVE: Mild tricuspid regurgitation. RVSP 52 mmHg. PULMONIC VALVE: Trace pulmonic regurgitation. No pulmonic stenosis. MISCELLANEOUS: No pericardial effusion. HEMODYNAMICS: Dilated IVC with >50% inspiratory collapse. Estimated CVP 8 mmHg. IMPRESSION: 1. Concentric left ventricular hypertrophy with normal systolic function, EF 68%. No wall motion abnormalities. 2. Severe calcific aortic stenosis with peak velocity 4.2 m/s, mean gradient 41 mmHg, calculated aortic valve area 0.7 cm2. 3. Moderate mitral stenosis with mean gradient 7 mmHg. Moderate mitral regurgitation into a dilated left atrium. 4. Normal right ventricular size and systolic function. 5. Estimated pulmonary artery systolic pressure is 52 mmHg. 6. Cardiology consultation is recommended.
--- NOTE | 2016-09-09 19:08 | DIAGNOSTIC IMAGING REPORT ---
PROCEDURE: US BILATERAL CAROTID DOPPLER INDICATION: BILATERAL BRUITS TECHNIQUE: Color Doppler duplex imaging of the carotid and vertebral vessels. COMPARISON: None. FINDINGS: Right carotid system: Minor eccentric hyperechoic plaque in the right carotid bulb without causing a significant subjective luminal stenosis. A small amount of mildly hypoechoic eccentric plaque causes a mild stenosis at the origin of the external carotid artery. Moderate irregularity secondary to a noncalcified plaque in the internal carotid artery. The wave forms remain normal. Left carotid system: Focal coarse, mildly hyperechoic, nonshadowing, eccentric plaque on either side of the left carotid bulb. Focal mixed calcified and noncalcified plaque extends into the internal carotid artery. There is moderate luminal irregularity secondary to noncalcified atherosclerosis. Significant velocity elevation and spectral broadening of the wave form in the proximal internal carotid artery. Distal internal carotid artery wave form demonstrates delayed systolic acceleration and maintenance of forward diastolic flow. Shadowing plaque creates a moderately significant stenosis of the external carotid origins well. Vertebral System: Antegrade vertebral artery flow bilaterally. Right common carotid artery peak systolic velocity 110 cm/second. Right internal carotid artery peak systolic velocity 124 cm/second. Right external carotid artery peak systolic velocity 91 cm/second. Right [id number] carotid artery ratio 1.3 Right vertebral artery peak systolic velocity 65 cm/second. Left common carotid artery peak systolic velocity 82 cm/second. Left internal carotid artery peak systolic velocity 463 cm/second. End diastolic velocity 44 cm/sec Left external carotid artery peak systolic velocity 388 cm/second. Left [id number] carotid artery ratio 6.1 Left vertebral artery peak systolic velocity 42 cm/second. IMPRESSION: 1. There is a hemodynamically significant stenosis involving the left internal carotid artery estimated to be between 70 and 99%. 2. 50- 99% left external carotid artery stenosis. 3. 5-15% stenosis of the right internal carotid artery. 4. Antegrade vertebral artery flow bilaterally. 5. Findings called to Dr. Musa. Velocity criteria are extrapolated from diameter data as defined by the Society of Radiologists in Ultrasound Consensus Conference, Radiology 2003; 229; 340-346.
== END 2016-09-09 23:00 | disposition home or self-care (01) ==
LOC: US SRH 12:26
DX: M75.101 Unspecified rotator cuff tear or rupture of right shoulder, not specified as traumatic (principal); I05.0 Rheumatic mitral stenosis; I35.0 Nonrheumatic aortic (valve) stenosis

== ENCOUNTER 2016-12-02 15:34 | Outpatient (CLI) | payer OTHER ==
--- NOTE | 2016-12-02 15:58 | DIAGNOSTIC IMAGING REPORT ---
PROCEDURE: XR CHEST 2 VIEW INDICATION: Dyspnea, aortic stenosis and history of renal failure. TECHNIQUE: Two views. COMPARISON: 06/14/2016 FINDINGS: The heart size is obscured. Mediastinal contour is stable. There is slight central vascular prominence without significant congestion, similar compared to the prior study. There is now moderate to large left lower lung opacity and moderate size right lower lung opacity with thickening of the fissures. Mild coarsening of the interstitial markings. No pneumothorax. Intact osseous structures. IMPRESSION: 1. Moderate to large left, and small to moderate right pleural effusions, new since the prior study. 2. Mildly prominent central vessels and interstitial markings, similar compared to the prior study suggestive of chronic increased volume status. 3. Discussed with Dr. Musa.
== END 2016-12-02 23:00 | disposition home or self-care (01) ==
LOC: XR SRH 15:34
DX: J90 Pleural effusion, not elsewhere classified (principal)